=== PATIENT | female | born 1960 | race Caucasian/White ===

== ENCOUNTER 2020-02-22 16:10 | Emergency (ER) | payer MEDICAID ==
[2020-02-22] MEDS ORDERED: Sodium Chloride 0.9% 10 ML Syringe FLUSH PRN ×2 (16:27→16:43)
[2020-02-22] MEDS ORDERED: Ondansetron 4 MG/2 ML SDV IVPUSH ONE (16:27)
[2020-02-22] MEDS ORDERED: HYDROmorphone 0.5 MG/0.5 ML Syringe IVPUSH ONE (16:29)
[2020-02-22] MEDS ORDERED: Sodium Chloride 0.9% 1,000 ML IV SCH (16:30)
[2020-02-22] MEDS ORDERED: Diatrizoate Meglumine/Diatrizoate Sodium 37% 120 ML Bottle PO ONE (16:43)
[2020-02-22] MEDS ORDERED: Iopamidol 612 MG/ML 100 ML Bottle IVPUSH ONE (16:43)
--- NOTE | 2020-02-22 17:07 | EDM.PDOC ---
ED HPI GENERAL MEDICAL PROBLEM - General Chief Complaint: Abdominal Pain Stated Complaint: ABDOMINAL PAIN Time Seen by Provider: 02/22/20 16:17 Source of Information: Reports: Patient History Limitations: Reports: No Limitations - History of Present Illness INITIAL COMMENTS - FREE TEXT/NARRATIVE: The patient presents with abdominal pain, nausea and bloating. She says the bloating has been going on for months. She ate at [employer] this afternoon and after that she developed pain in her left abdomen. She is nauseated but she did not vomit. She has no fever, chills, cough, congestion, runny nose, chest pain or shortness of breath. She says she had some trouble in her liver in the past from drinking but that is better now. She has no dysuria or diarrhea. Onset: Gradual Duration: Hour(s): Location: Reports: Abdomen Quality: Reports: Sharp Severity: Moderate Improves with: Reports: None Worsens with: Reports: None Associated Symptoms: Reports: Nausea/Vomiting. Denies: Chest Pain, Cough, Fever /Chills, Headaches, Shortness of Breath Left Upper Abdominal Pain Score (Numeric/FACES): 7 - Related Data Allergies Allergy/AdvReac Type Severity Reaction Status Date / Time No Known Allergies Allergy Verified 02/22/20 16:20 Home Meds: Home Meds Hydrocodone/Acetaminophen [Hydrocodone-Acetamin 5-325 mg] 1 - 2 each PO Q6HR PRN #10 tablet 02/22/20 [Rx] Past Medical History Cardiovascular History: Reports: Hypertension Social & Family History - Tobacco Use Smoking Status *Q: Current Every Day Smoker Years of Tobacco use: 25 Packs/Tins Daily: 0.5 - Alcohol Use Days Per Week of Alcohol Use: 7 Number of Drinks Per Day: 3 Total Drinks Per Week: 21 - Recreational Drug Use Recreational Drug Use: Yes Drug Use in Last 12 Months: Yes Recreational Drug Type: Reports: Marijuana/Hashish ED ROS GENERAL - Review of Systems Review Of Systems: See Below Constitutional: Reports: No Symptoms HEENT: Reports: No Symptoms Respiratory: Reports: No Symptoms Cardiovascular: Reports: No Symptoms Endocrine: Reports: No Symptoms GI/Abdominal: Reports: Abdominal Pain, Nausea. Denies: Diarrhea, Vomiting : Reports: No Symptoms Musculoskeletal: Reports: No Symptoms ED EXAM, GI/ABD - Physical Exam Exam: See Below Exam Limited By: No Limitations General Appearance: Alert, No Apparent Distress Ears: Normal External Exam Nose: Normal Inspection Head: Atraumatic, Normocephalic Neck: Normal Inspection Respiratory/Chest: No Respiratory Distress, Lungs Clear, Normal Breath Sounds Cardiovascular: Regular Rate, Rhythm, No Edema, No Murmur GI/Abdominal Exam: Soft, No Organomegaly, No Mass, Distended, Tender (Left abdomen) Course - Vital Signs Last Recorded V/S: Last Vital Signs Temp 97.9 F 02/22/20 16:17 Pulse 75 02/22/20 16:17 Resp 18 02/22/20 16:17 BP 101/63 02/22/20 16:17 Pulse Ox 95 02/22/20 16:17 - Orders/Labs/Meds Orders: Active Orders 24 hr Category Date Time Status Peripheral IV Care [RC] . DIRECTED Care 02/22/20 16:28 Active Sodium Chloride 0.9% [Normal Saline] 1,000 ml Med 02/22/20 16:30 Active IV ASDIRECTED Sodium Chloride 0.9% [Saline Flush] Med 02/22/20 16:27 Active 10 ml FLUSH ASDIRECTED PRN ED Antiemetic Medication Reflex [OM.PC] Stat Oth 02/22/20 16:28 Ordered Peripheral IV Insertion Adult [OM.PC] Stat Oth 02/22/20 16:27 Ordered Medication Orders Sodium Chloride (Normal Saline) 1,000 mls @ 125 mls/hr IV ASDIRECTED MARIBEL Last Admin: 02/22/20 16:35 Dose: 125 mls/hr Sodium Chloride (Saline Flush) 10 ml FLUSH ASDIRECTED PRN PRN Reason: Keep Vein Open Last Admin: 02/22/20 16:34 Dose: 10 ml Labs: Laboratory Tests 02/22/20 02/22/20 02/22/20 Range/Units 16:25 16:25 16:25 WBC 11.16 H (3.98-10.04) K/mm3 RBC 3.94 L (3.98-5.22) M/mm3 Hgb 12.9 (11.2-15.7) gm/dl Hct 39.4 (34.1-44.9) % MCV 100.0 H (79.4-94.8) fl MCH 32.7 H (25.6-32.2) pg MCHC 32.7 (32.2-35.5) g/dl RDW Std Deviation 47.2 H (36.4-46.3) fL Plt Count 335 (182-369) K/mm3 MPV 10.4 (9.4-12.3) fl Neut % (Auto) 72.7 H (34.0-71.1) % Lymph % (Auto) 16.9 L (19.3-51.7) % [place] % (Auto) 8.9 (4.7-12.5) % Eos % (Auto) 0.6 L (0.7-5.8) Baso % (Auto) 0.3 (0.1-1.2) % Neut # (Auto) 8.11 H (1.56-6.13) K/mm3 Lymph # (Auto) 1.89 (1.18-3.74) K/mm3 [place] # (Auto) 0.99 H (0.24-0.36) K/mm3 Eos # (Auto) 0.07 (0.04-0.36) K/mm3 Baso # (Auto) 0.03 (0.01-0.08) K/mm3 Manual Slide Review Normal smear Sodium 139 (136-145) mEq/L Potassium 4.3 (3.5-5.1) mEq/L Chloride 103 (98-107) mEq/L Carbon Dioxide 25 (21-32) mEq/L Anion Gap 15.3 H (5-15) BUN 42 H (7-18) mg/dL Creatinine 1.9 H (0.55-1.02) mg/dL Est Cr Clr Drug Dosing 24.59 mL/min Estimated GFR (MDRD) 27 (>60) mL/min BUN/Creatinine Ratio 22.1 H (14-18) Glucose 124 H (80-115) mg/dL Calcium 9.6 (8.5-10.1) mg/dL Total Bilirubin 0.5 (0.2-1.0) mg/dL AST 18 (15-37) U/L ALT 31 (14-59) U/L Alkaline Phosphatase 74 (46-116) U/L Total Protein 7.6 (6.4-8.2) g/dl Albumin 3.9 (3.4-5.0) g/dl Globulin 3.7 gm/dL Albumin/Globulin Ratio 1.1 (1-2) Lipase 180 (73-393) U/L Ethyl Alcohol 0.00 (0.00) gm% Meds: Medications Generic Name Dose Route Start Last Admin Trade Name Brenda PRN Reason Stop Dose Admin Sodium Chloride 1,000 mls @ 125 mls/hr 02/22/20 16:30 02/22/20 16:35 Normal Saline IV 125 mls/hr ASDIRECTED MARIBEL Administration Sodium Chloride 10 ml 02/22/20 16:27 02/22/20 16:34 Saline Flush FLUSH 10 ml ASDIRECTED PRN Administration Keep Vein Open Discontinued Medications Generic Name Dose Route Start Last Admin Trade Name Brenda PRN Reason Stop Dose Admin Diatrizoate Meglum/Diatrizoate Sod 40 ml 02/22/20 16:43 02/22/20 17:42 Gastrografin 37% PO 02/22/20 16:44 40 ml ONETIME ONE Administration Hydromorphone HCl 0.5 mg 02/22/20 16:29 02/22/20 16:35 Dilaudid IVPUSH 02/22/20 16:30 0.5 mg ONETIME ONE Administration Iopamidol 100 ml 02/22/20 16:43 Isovue-300 (61%) IVPUSH 02/22/20 16:44 ONETIME ONE Ondansetron HCl 4 mg 02/22/20 16:27 02/22/20 16:34 Zofran IVPUSH 02/22/20 16:28 4 mg ONETIME ONE Administration Sodium Chloride 10 ml 02/22/20 16:43 Saline Flush FLUSH 02/22/20 18:00 ONETIME PRN Keep Vein Open - Re-Assessments/Exams Free Text/Narrative Re-Assessment/Exam: 02/22/20 17:03 I ordered an IV, zofran 4mg IV, dilaudid 0.5mg IV, labs UA and a CT of her abdomen and pelvis. She had an US done here about 6 days ago. The US shows single gallstones believed to be present within the gallbladder without gallbladder wall thickening or biliary duct dilatation. 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 No additional abnormality is identified on right upper quadrant abdominal US. 02/22/20 18:10 Her WBC is elevated at 11.16. Her BUN was elevated at 42. Her creatinine is elevated at 1.9. I do not have anything to compare to. Her glucose was 124. Her lipase was negative. Her ETOH was 0. Her CT shows findings as noted above. Nothing acute is appreciated on noncontrast CT study of the abdomen and pelvis. 02/22/20 18:19 She feels a little frustrated because it is not clear why she has a distended abdomen at this time. Departure - Departure Time of Disposition: 18:20 Disposition: Home, Self-Care 01 Condition: Good Clinical Impression: Distended abdomen Abdominal pain Qualifiers: Abdominal location: left upper quadrant Qualified Code(s): R10.12 - Left upper quadrant pain - Discharge Information *PRESCRIPTION DRUG MONITORING PROGRAM REVIEWED*: Not Applicable *COPY OF PRESCRIPTION DRUG MONITORING REPORT IN PATIENT ELIO: Not Applicable Prescriptions: Hydrocodone/Acetaminophen [Hydrocodone-Acetamin 5-325 mg] 1 - 2 each PO Q6HR PRN #10 tablet PRN Reason: Pain Referrals: PCP,Not In Area [Primary Care Provider] - Forms: ED Department Discharge Additional Instructions: Drink plenty of fluids. Take tylenol or motrin for any pain. If that does not help, try the hydrocodone. Follow up with your provider tomorrow. Please return if you are worse. Sepsis Event Note - Evaluation Sepsis Screening Result: No Definite Risk - Focused Exam Vital Signs: Vital Signs Temp Pulse Resp BP Pulse Ox 02/22/20 16:17 97.9 F 75 18 101/63 95 Date Exam was Performed: 02/22/20 Time Exam was Performed: 18:19 - My Orders Last 24 Hours: My Active Orders 02/22/20 16:27 Sodium Chloride 0.9% [Saline Flush] 10 ml FLUSH ASDIRECTED PRN Peripheral IV Insertion Adult [OM.PC] Stat 02/22/20 16:28 Peripheral IV Care [RC] . DIRECTED ED Antiemetic Medication Reflex [OM.PC] Stat 02/22/20 16:30 Sodium Chloride 0.9% [Normal Saline] 1,000 ml IV ASDIRECTED - Assessment/Plan Last 24 Hours: My Active Orders 02/22/20 16:27 Sodium Chloride 0.9% [Saline Flush] 10 ml FLUSH ASDIRECTED PRN Peripheral IV Insertion Adult [OM.PC] Stat 02/22/20 16:28 Peripheral IV Care [RC] . DIRECTED ED Antiemetic Medication Reflex [OM.PC] Stat 02/22/20 16:30 Sodium Chloride 0.9% [Normal Saline] 1,000 ml IV ASDIRECTED
--- NOTE | 2020-02-22 18:05 | CT ---
CT abdomen and pelvis Technique: Multiple axial sections were obtained from above the dome of the diaphragm inferiorly through the pubic symphysis. Intravenous contrast could not be given due to poor renal function. Oral contrast has been given. Comparison: No prior CT abdomen or pelvis exam, previous abdominal ultrasound of the right upper quadrant dated 02/15/20. Findings: Visualized lung bases show nothing acute. Liver contains no focal parenchymal abnormality. Gallbladder contains no calcified gallstones. Left kidney shows a small nonobstructing stone within the mid kidney. No additional abnormality is definitely appreciated within the kidneys. No hydronephrosis is seen. Pancreas is within normal limits. Adrenal glands show no nodule. Aorta shows atherosclerotic calcification without aneurysm. No retroperitoneal adenopathy is seen. Appendix is seen which is normal. No pelvic mass or adenopathy is seen. Mild diverticuli are seen within the sigmoid colon with no inflammatory change of diverticulitis. Bone window settings were reviewed which shows degenerative change within the spine. No acute osseous finding is appreciated. Impression: 1. Findings as noted above. 2. Nothing acute is appreciated on noncontrast CT study of the abdomen and pelvis. Diagnostic code #2 This report was dictated in MDT
== END 2020-02-22 18:32 | disposition home or self-care (01) ==
LOC: JD.ED 16:10
DX: R10.12 Left upper quadrant pain (principal); R14.0 Abdominal distension (gaseous); I10 Essential (primary) hypertension; F17.210 Nicotine dependence, cigarettes, uncomplicated
CPT/HCPCS: 36415; 74177; 80053; 80307; 83690; 85025; 96361; 96374; 96375; 99284; J1170; J2405; J7030

== ENCOUNTER 2020-03-08 10:40 | Day surgery (SDC) | payer MEDICAID ==
[2020-03-08] MEDS ORDERED: Lidocaine 1%/Sod Bicarbonate in NS 8.4% 1 ML Syringe IDERM PRN (11:07)
[2020-03-08] MEDS ORDERED: Sodium Chloride 0.9% 10 ML Syringe FLUSH PRN (11:07)
[2020-03-08] MEDS ORDERED: Lactated Ringers 1,000 ML IV SCH (11:15)
[2020-03-08] MEDS ORDERED: Propofol 200 MG/20 ML SDV ONE ×2 (11:51→12:15)
[2020-03-08] MEDS ORDERED: fentaNYL 100 MCG/2 ML SDV ONE (11:51)
[2020-03-08] MEDS ORDERED: Lidocaine 1% 4 ML ONE (11:53)
--- NOTE | 2020-03-08 12:02 | PCM.PREANE ---
Preanesthetic Assessment - Anesthesia/Transfusion/Family Hx Anesthesia History: Prior Anesthesia Without Reaction Family History of Anesthesia Reaction: No Transfusion History: No Prior Transfusion(s) - Review of Systems General: No Symptoms, Other (adenoma of adrenal adenoma) Pulmonary: Shortness of Breath, Other (smoker, last smoke 0700, positive for marijuana, last used at 0700) Cardiovascular: Chest Pain (goes away with rest) Gastrointestinal: Abdominal Pain, Other (GERD) Neurological: Numbness, Tingling (in hands, cervical rediculopathy) Other: Reports: Anxiety - Physical Assessment NPO Status Date: 03/08/20 NPO Status Time: 07:00 Vital Signs: Last Vital Signs Temp 36.6 C 03/08/20 10:40 Pulse 69 03/08/20 10:40 Resp 20 03/08/20 10:40 BP 141/71 H 03/08/20 10:40 Pulse Ox 95 03/08/20 10:40 Height: 1.57 m Weight: 82.1 kg ASA Class: 3 Mental Status: Alert & Oriented x3 Airway Class: Mallampati = 2 Dentition: Reports: Normal Dentition Thyro-Mental Finger Breadths: 3 Mouth Opening Finger Breadths: 3 ROM/Head Extension: Full Lungs: Clear to Auscultation, Normal Respiratory Effort Cardiovascular: Regular Rate, Regular Rhythm - Allergies Allergies/Adverse Reactions: Allergies Allergy/AdvReac Type Severity Reaction Status Date / Time No Known Allergies Allergy Verified 02/22/20 16:20 - Blood Blood Available: No Product(s) Available: None - Anesthesia Plan Pre-Op Medication Ordered: None Beta Darlin: Metoprolol Med Last Dose Date: 03/08/20 Med Last Dose Time: 07:00 - Acknowledgements Anesthesia Type Planned: MAC Pt an Appropriate Candidate for the Planned Anesthesia: Yes Alternatives and Risks of Anesthesia Discussed w Pt/Guardian: Yes Pt/Guardian Understands and Agrees with Anesthesia Plan: Yes PreAnesthesia Questionnaire Cardiovascular History: Reports: Hypertension - HOME MEDS Home Medications: Home Meds Hydrocodone/Acetaminophen [Hydrocodone-Acetamin 5-325 mg] 1 - 2 each PO Q6HR PRN #10 tablet 02/22/20 [Rx] - CURRENT (IN HOUSE) MEDS Current Meds: Current Medications Lactated Ringer's (Ringers, Lactated) 1,000 mls @ 125 mls/hr IV ASDIRECTED MARIBEL Stop: 03/08/20 23:00 Last Admin: 03/08/20 10:55 Dose: 125 mls/hr Lidocaine/Sodium Bicarbonate (Buffered Lidocaine 1% In Ns 8.4%) 0.25 ml IDERM ONETIME PRN PRN Reason: Prior to IV Start Last Admin: 03/08/20 10:55 Dose: 0.25 ml Sodium Chloride (Saline Flush) 10 ml FLUSH ASDIRECTED PRN PRN Reason: Keep Vein Open Stop: 03/08/20 18:00 Discontinued Medications Fentanyl (Sublimaze) Confirm Administered Dose 100 mcg .ROUTE .STK-MED ONE Stop: 03/08/20 11:52 Lidocaine HCl (Xylocaine-Mpf 1%) Confirm Administered Dose 4 mls @ as directed .ROUTE .STK-MED ONE Stop: 03/08/20 11:54 Propofol (Diprivan 20 Ml) Confirm Administered Dose 400 mg .ROUTE .STK-MED ONE Stop: 03/08/20 11:52
[2020-03-08] MEDS ORDERED: Albuterol 0.083% 2.5 MG/3 ML Neb Soln NEB ONE (12:11)
[2020-03-08] MEDS ORDERED: Midazolam 1 MG/ML 2 ML SDV ONE (12:14)
--- NOTE | 2020-03-08 13:08 | PCM48HPAN ---
Post Anesthesia Note - EVALUATION WITHIN 48HRS OF ANESTHETIC Vital Signs in Normal Range: Yes Patient Participated in Evaluation: Yes Respiratory Function Stable: Yes Airway Patent: Yes Cardiovascular Function Stable: Yes Hydration Status Stable: Yes Pain Control Satisfactory: Yes Nausea and Vomiting Control Satisfactory: Yes Mental Status Recovered: Yes Vital Signs: Last Vital Signs Temp 36.6 C 03/08/20 10:40 Pulse 69 03/08/20 10:40 Resp 20 03/08/20 10:40 BP 141/71 H 03/08/20 10:40 Pulse Ox 99 03/08/20 12:21
--- NOTE | 2020-03-08 13:13 | PCM.OPNOTE ---
- General Post-Op/Procedure Note Date of Surgery/Procedure: 03/08/20 Operative Procedure(s): EGD Findings: 1. Duodenitis 2. Gastritis 3. Esophagitis at GE junction 4. Sliding hiatal hernia 5. Antrum polyps Pre Op Diagnosis: Abdominal pain, bloating, nausea Post-Op Diagnosis: same Anesthesia Technique: MELITON Primary Surgeon: Zuleima Curtis Anesthesia Provider: Neelima Jo Pathology: 1. Antrum biopsy 2. Biopsy of antral polyp 3. GE junction biopsy Fluid Replacement, Intraop: 800 Output, Urine Amount: 0 EBL in mLs: 0 Complications: none apparent Condition: Good
--- NOTE | 2020-03-08 13:24 | PCM.PRNOTE ---
- Free Text/Narrative Note: Operative Report Date of procedure: March 08, 2020 Preoperative diagnosis: Abdominal pain, bloating, nausea Postoperative diagnosis: same Surgeon: Zuleima Curtis M.D. Procedure: EGD Anesthesia: MAC Brazing Machine Operator: Neelima Jo CRNA IV fluids: 800 mL Estimated blood loss: 0 mL Findings: 1. Duodenitis 2. Gastritis 3. Esophagitis at GE junction 4. Sliding hiatal hernia 5. Antrum polyps Specimens: 1. Antrum biopsy 2. Biopsy of antral polyp 3. GE junction biopsy Indication: The patient is a 59-year-old lady who presented with findings of abdominal pain, bloating, nausea and some dyspepsia. The patient was consented for an EGD for diagnostic purposes. Risk of bleeding and perforation were discussed. The patient's consent was obtained Description of the procedure: The patient was taken to the endoscopy suite and placed on hemodynamic monitoring. The nurse zipper trimmer hand induced MAC anesthesia. A bite block was placed. The patient was positioned in the left lateral decubitus position. A timeout was performed. The endoscope was gently placed into the mouth to the back of the pharynx and introduced into the esophagus. The scope was gently advanced under direct visualization down to the level of the lower esophageal sphincter. The stomach was then entered. Normal rugal folds were noted. The scope was advanced into the antrum. We noted evidence of hemorrhagic gastritis with stigmata of recent bleeding, there was no active bleeding noted. The pylorus was then entered and the first and second portion of the duodenum was inspected. We did note some erythema and friability consistent with duodenitis. There were no ulcerations in the duodenum. The scope was withdrawn to the antrum and biopsies were taken with a cold biopsy forceps for H. pylori. There were polypoid areas with superficial erosion noted in the antrum, biopsies were taken with cold biopsy forceps. The scope was then retroflexed in the cardia and fundus were investigated. There is evidence of a small hiatal hernia. The tissue in the area of the GE junction appeared somewhat inflamed, biopsies were taken with a cold biopsy forceps for pathology. No other abnormalities were noted. The scope was then withdrawn while inspecting the esophagus. There was no esophagitis. The procedure was terminated. the patient tolerated the procedure well without any evidence of complications. Zuleima Curtis MD General Surgery
== END 2020-03-08 14:05 | disposition home or self-care (01) ==
LOC: JD.SDS 10:40
PROVIDERS: ATTEND Surgery
DX: K29.51 Unspecified chronic gastritis with bleeding (principal); K29.80 Duodenitis without bleeding; K44.9 Diaphragmatic hernia without obstruction or gangrene; K20.9 Esophagitis, unspecified; K31.7 Polyp of stomach and duodenum; K31.89 Other diseases of stomach and duodenum; I10 Essential (primary) hypertension; F41.9 Anxiety disorder, unspecified; F17.210 Nicotine dependence, cigarettes, uncomplicated; Z98.890 Other specified postprocedural states; Z79.899 Other long term (current) drug therapy
CPT/HCPCS: 00731; 94640; J2001; J2250; J2704; J3010; J7120

== ENCOUNTER 2020-07-05 07:58 | Day surgery (SDC) | payer MEDICAID ==
[~2020-07-05 07:58] MED LIST: Albuterol 0.083% 2.5 MG/3 ML Neb Soln NEB ONE; Dexamethasone 4 MG/ML 5 ML MDV ONE; Dexmedetomidine 200 MCG/2 ML SDV ONE; FLU VACC QS2020-21(6MOS UP)/PF 60 MCG/0.5 ML SYRINGE IM ONE; Lactated Ringers 1,000 ML IV SCH; Lidocaine 1% 4 ML ONE; Lidocaine 1%/Sod Bicarbonate in NS 8.4% 1 ML Syringe IDERM PRN; Midazolam 1 MG/ML 2 ML SDV ONE; Ondansetron 4 MG/2 ML SDV ONE; Propofol 200 MG/20 ML SDV ONE; Rocuronium 50 MG/5 ML Vial ONE; Sodium Chloride 0.9% 10 ML Syringe FLUSH PRN; fentaNYL 250 MCG/5 ML SDV ONE
[2020-07-05] MEDS ORDERED: Lidocaine 1% with EPINEPHrine 1:100,000 20 ML MDV ONE (08:03)
[2020-07-05] MEDS ORDERED: Bupivacaine 0.5%/EPINEPHrine 1:200,000 50 ML MDV ONE (08:03)
[2020-07-05] MEDS ORDERED: Albuterol 0.083% 2.5 MG/3 ML Neb Soln ONE (08:29)
--- NOTE | 2020-07-05 08:29 | PCM.PREANE ---
Preanesthetic Assessment - Procedure Proposed Procedure: lap roopa - Anesthesia/Transfusion/Family Hx Anesthesia History: Prior Anesthesia Without Reaction Family History of Anesthesia Reaction: No Transfusion History: No Prior Transfusion(s) - Review of Systems General: No Symptoms Pulmonary: Cough (smokers) Cardiovascular: Dyspnea on Exertion Gastrointestinal: Abdominal Pain (Right upper quadrant) Neurological: Numbness (hands) Other: Reports: Anxiety - Physical Assessment NPO Status Date: 07/04/20 NPO Status Time: 00:00 Height: 1.57 m Weight: 82.4 kg ASA Class: 2 Mental Status: Alert & Oriented x3 Airway Class: Mallampati = 1 Dentition: Reports: Missing Tooth/Teeth (front top), Caries Thyro-Mental Finger Breadths: 3 Mouth Opening Finger Breadths: 3 ROM/Head Extension: Full Lungs: Clear to Auscultation, Normal Respiratory Effort Cardiovascular: Regular Rate, Regular Rhythm - Imaging/EKG Impressions: EKG SR rate 62 - Allergies Allergies/Adverse Reactions: Allergies Allergy/AdvReac Type Severity Reaction Status Date / Time No Known Allergies Allergy Verified 07/05/20 09:08 - Blood Blood Available: No Product(s) Available: None - Anesthesia Plan Pre-Op Medication Ordered: Beta Darlin Beta Darlin: Metoprolol Med Last Dose Date: 07/05/20 Med Last Dose Time: 05:00 - Acknowledgements Anesthesia Type Planned: General Anesthesia Pt an Appropriate Candidate for the Planned Anesthesia: Yes Alternatives and Risks of Anesthesia Discussed w Pt/Guardian: Yes Pt/Guardian Understands and Agrees with Anesthesia Plan: Yes PreAnesthesia Questionnaire HEENT History: Reports: None Cardiovascular History: Reports: Hypertension Respiratory History: Reports: None Gastrointestinal History: Reports: Diverticulosis, Other (See Below) Other Gastrointestinal History: dyspepsia, fatty liver, left inguinal hernia Genitourinary History: Reports: None FIELD SPECIALIST History: Reports: None Musculoskeletal History: Reports: Osteoarthritis Neurological History: Reports: Other (See Below) Other Neuro History: cerebral anuerysm, cervical radiculopathy, disc degeneration Psychiatric History: Reports: Addiction, Anxiety Endocrine/Metabolic History: Reports: Other (See Below) Other Endocrine/Metabolic History: adrenal gland adenoma Hematologic History: Reports: Other (See Below) Other Hematologic History: macrocytic anemia Immunologic History: Reports: None Oncologic (Cancer) History: Reports: None Dermatologic History: Reports: Other (See Below) Other Dermatologic History: onchomycosis - Past Surgical History Head Surgeries/Procedures: Reports: None HEENT Surgical History: Reports: None Cardiovascular Surgical History: Reports: None Respiratory Surgical History: Reports: None GI Surgical History: Reports: Colonoscopy, EGD Female Surgical History: Reports: Hysterectomy Male Surgical History: Reports: None Endocrine Surgical History: Reports: None Neurological Surgical History: Reports: Other (See Below) Other Neurological Surgeries/Procedures: craniotomy Musculoskeletal Surgical History: Reports: None Oncologic Surgical History: Reports: None Dermatological Surgical History: Reports: None - SUBSTANCE USE Smoking Status *Q: Current Every Day Smoker Days Per Week of Alcohol Use: 7 Number of Drinks Per Day: 8 Total Drinks Per Week: 56 Date of Last Drink: 07/03/20 Recreational Drug Use History: Yes Recreational Drug Type: Reports: Marijuana/Hashish - HOME MEDS Home Medications: Home Meds Pantoprazole Sodium [Protonix] 40 mg PO DAILY #30 tablet. 03/08/20 [Rx] Acai Alas Extract [Acai Alas] 500 mg PO BID 07/04/20 [History] Alpha Lipoic Acid [Lipoic Acid] 1 dose PO DAILY 07/04/20 [History] Calcium Carb/Mag Ox/Zinc Gluc [Iedcplq-Qvpuanoyz-Xexx] 1 tab PO DAILY 07/04/20 [History] Fish Oil/Borage/Flax/Om3,6,9 1 [[place] 3-6-9 1,200 mg Softgel] 1 tab PO DAILY 07/04/20 [History] Losartan [Cozaar] 100 mg PO DAILY 07/04/20 [History] Metoprolol Succinate 50 mg PO BID 07/04/20 [History] Potassium Gluconate [Potassium] 99 mg PO BID 07/04/20 [History] Psyllium Husk [Metamucil] 1 dose PO DAILY PRN 07/04/20 [History] Vitamin B Complex [B Complex] 2 tab PO DAILY 07/04/20 [History] Vitamin E Acid Succinate [Vitamin E] 100 units PO DAILY 07/04/20 [History] - CURRENT (IN HOUSE) MEDS Current Meds: Current Medications Lactated Ringer's (Ringers, Lactated) 1,000 mls @ 125 mls/hr IV ASDIRECTED MARIBEL Stop: 07/05/20 23:00 Lidocaine/Sodium Bicarbonate (Buffered Lidocaine 1% In Ns 8.4%) 0.25 ml IDERM ONETIME PRN PRN Reason: Prior to IV Start Stop: 07/05/20 23:00 Sodium Chloride (Saline Flush) 10 ml FLUSH ASDIRECTED PRN PRN Reason: Keep Vein Open Stop: 07/05/20 23:00 Discontinued Medications Albuterol (Proventil Neb Soln) 2.5 mg NEB ONETIME ONE Stop: 07/05/20 00:02 Bupivacaine HCl/Epinephrine Bitart (Marcaine 0.5%/Epinephrine 1:200,000) Confirm Administered Dose 50 ml .ROUTE .STK-MED ONE Stop: 07/05/20 08:04 Dexamethasone (Dexamethasone) Confirm Administered Dose 20 mg .ROUTE .STK-MED ONE Stop: 07/05/20 07:27 Dexmedetomidine HCl (Precedex) Confirm Administered Dose 200 mcg .ROUTE .STK-MED ONE Stop: 07/05/20 07:30 Fentanyl (Sublimaze) Confirm Administered Dose 250 mcg .ROUTE .STK-MED ONE Stop: 07/05/20 07:25 Lidocaine HCl (Xylocaine-Mpf 1%) Confirm Administered Dose 4 mls @ as directed .ROUTE .STK-MED ONE Stop: 07/05/20 07:24 Influenza Virus Vaccine (Fluzone Quad 2817-2300 Syringe) 60 mcg IM .ONCE ONE Stop: 07/04/20 13:01 Lidocaine/Epinephrine (Xylocaine 1% With Epinephrine 1:100,000) Confirm Administered Dose 40 ml .ROUTE .STK-MED ONE Stop: 07/05/20 08:04 Midazolam HCl (Versed 1 Mg/Ml) Confirm Administered Dose 2 mg .ROUTE .STK-MED ONE Stop: 07/05/20 07:23 Ondansetron HCl (Zofran) Confirm Administered Dose 4 mg .ROUTE .STK-MED ONE Stop: 07/05/20 07:27 Propofol (Diprivan 20 Ml) Confirm Administered Dose 200 mg .ROUTE .STK-MED ONE Stop: 07/05/20 07:25 Rocuronium Girard (Zemuron) Confirm Administered Dose 50 mg .ROUTE .STK-MED ONE Stop: 07/05/20 07:26
[2020-07-05] MEDS ORDERED: ceFAZolin 1 GM Vial ONE (09:26)
[2020-07-05] MEDS ORDERED: Sodium Chloride 0.9% 100 ML ONE (09:30)
[2020-07-05] MEDS ORDERED: ePHEDrine Sulfate/0.9% NaCl/Pf 25 MG/5 ML SYRINGE IV ONE (09:36)
[2020-07-05] MEDS ORDERED: fentaNYL 100 MCG/2 ML SDV ONE ×2 (09:50→10:55)
[2020-07-05] MEDS ORDERED: HYDROmorphone 0.5 MG/0.5 ML Syringe ONE ×2 (09:51→10:13)
[2020-07-05] MEDS ORDERED: Lactated Ringers 1,000 ML ONE (09:55)
[2020-07-05] MEDS ORDERED: fentaNYL 100 MCG/2 ML SDV IVPUSH PRN (10:06)
[2020-07-05] MEDS ORDERED: HYDROmorphone 0.5 MG/0.5 ML Syringe IVPUSH PRN (10:06)
[2020-07-05] MEDS ORDERED: Rocuronium 50 MG/5 ML Vial ONE (10:21)
--- NOTE | 2020-07-05 10:38 | PCM.OPNOTE ---
- General Post-Op/Procedure Note Date of Surgery/Procedure: 07/05/20 Operative Procedure(s): laparoscopic cholecystectomy Findings: normal gallbladder anatomy Pre Op Diagnosis: symptomatic cholelithiasis Post-Op Diagnosis: same Anesthesia Technique: General ET Tube Primary Surgeon: Zuleima Curtis Anesthesia Provider: Gianni Mart Payroll Tax Analyst: Bg Taylor (Student HOSPITAL PERSONNEL DIRECTOR) Pathology: gallbladder with contents Fluid Replacement, Intraop: 1,200 Output, Urine Amount: 0 EBL in mLs: 50 Complications: none apparent Condition: Good
--- NOTE | 2020-07-05 10:57 | PCM.PRNOTE ---
- Free Text/Narrative Note: OPERATIVE REPORT Date of Surgery/Procedure: July 05, 2020 Operative Procedure(s): laparoscopic cholecystectomy Findings: Normal gallbladder anatomy Pre Op Diagnosis: Symptomatic cholelithiasis Post-Op Diagnosis: Same Anesthesia Technique: General ET Tube Primary Surgeon: Zuleima Curtis MD Anesthesia Provider: Gianni Mart CRNA and JASWANT Amado Pathology: Gallbladder with contents Fluid Replacement, Intraop: 1200 cc Output, Urine Amount: 0cc EBL: 50 cc Drain/Tube Comments: None Indication for the procedure: The patient is a 59-year-old lady who presented to my office with upper abdominal pain with some isolated right upper quadrant pain. She had ultrasound findings of cholelithiasis without cholecystitis or biliary obstruction. Her preoperative CMP was within normal limits. The patient was counseled for laparoscopic cholecystectomy, with possible conversion to open. After discussion of the risks of infection, bleeding and injury to the bile duct as well as increased complication from previous intra-abdominal surgery, the patient's consent was obtained. Description of the procedure: The patient presented to the outpatient holding area on the day of the procedure. The history and physical were verified and consent was present and on the chart. The patient was taken back to the operating room and placed in supine position on the operating table. SCD boots were placed and functional prior to the start of the procedure. Preoperative antibiotics were administered according to SCIP protocol, Ancef 2 g IV. A surgical timeout was performed. The patient then had induction of general anesthesia and was intubated without difficulty. The patient was prepped and draped in standard surgical fashion. We began by making an infraumbilical vertical incision and deepened this down through subcutaneous fat to the level of the fascia. This was grasped and incised. We bluntly entered through the peritoneum and a finger sweep was done. A stay suture of 0 Vicryl was placed in the fascia. The 12 mm balloon Dhillon port was then inserted into the abdomen and the balloon inflated. Insufflation was attached and we had appropriate opening pressures. The abdomen was then insufflated to 15 mmHg. We inserted a scope into the abdomen and inspected the area where we had entered. There was no evidence of injury to surrounding structures with no evidence of bile or bleeding. A TAP block was then performed using 1% lidocaine with epinephrine mixed with 0.5% bupivacaine with epinephrine. We then proceeded with placing our additional ports. A 5mm port was placed in the epigastric region. Two additional 5mm ports placed under direct visualization in the right upper quadrant. The patient was then positioned with head up and right side up to facilitate exposure of the gallbladder. Once we had sufficiently exposed the dome of the gallbladder, this was grasped and retracted cephalad. During this process, a small tear was made in the adjacent liver lobe where there was a cleft. The bleeding was addressed with the Bovie device and Surgicel. This did control the bleeding. We proceeded with our dissection to expose the cystic duct and cystic artery. The cystic duct and artery were then clipped and cut using endoscopic scissors. We then proceeded to fully dissect the gallbladder off of the cystic plate using the Bovie device. The gallbladder was then placed in the Endo Catch bag and withdrawn towards the umbilical port. A small hole was made in the gallbladder during the process of dissection. There was spillage of some bile. We then inspected the area of the dissection. Ray-Reynaldo's were used to mop up blood and spilled bile. The cystic plate was then addressed with the Bovie device for hemostasis. There was no significant bleeding and hemostasis was achieved. We then inspected the port sites and desufflated the abdomen. The ports were then removed. The gallbladder was withdrawn through the umbilical port site. We then proceeded to close the umbilical port site using an 0 Vicryl stitch. We had good closure of the fascia. A superficial 4-0 monocryl suture was used to approximate the skin. The skin was covered with Dermabond surgical glue. The patient tolerated the procedure well and was extubated without difficulty. He was transported to the PACU in stable condition. All sponge, needle counts correct. I was scrubbed and actively participated in the entire procedure. No immediate complications noted. Complications: None apparent Condition: Good Zuleima Curtis MD General Surgery
--- NOTE | 2020-07-05 11:07 | PCM.POSTAN ---
POST ANESTHESIA ASSESSMENT - MENTAL STATUS Mental Status: Alert, Oriented - VITAL SIGNS Vital Signs: Last Vital Signs Temp 97.7 F 07/05/20 08:05 Pulse 66 07/05/20 08:05 Resp 16 07/05/20 08:05 BP 128/84 07/05/20 09:06 Pulse Ox 97 07/05/20 08:33 132/88 93% 3L 73 10 96.9f - RESPIRATORY Respiratory Status: Respiratory Rate WNL, Airway Patent, O2 Saturation Stable, Supplemental Oxygen - CARDIOVASCULAR CV Status: Pulse Rate WNL, Blood Pressure Stable - GASTROINTESTINAL GI Status: No Symptoms - PAIN Pain Score: 3 - POST OP HYDRATION Hydration Status: Adequate & Stable
[2020-07-05] MEDS ORDERED: Acetaminophen/HYDROcodone 325-5 MG Tab PO PRN (11:46)
--- NOTE | 2020-07-05 11:48 | PCM48HPAN ---
Post Anesthesia Note - EVALUATION WITHIN 48HRS OF ANESTHETIC Vital Signs in Normal Range: Yes Patient Participated in Evaluation: Yes Respiratory Function Stable: Yes Airway Patent: Yes Cardiovascular Function Stable: Yes Hydration Status Stable: Yes Pain Control Satisfactory: Yes Nausea and Vomiting Control Satisfactory: Yes Mental Status Recovered: Yes Vital Signs: Last Vital Signs Temp 36.1 C 07/05/20 10:58 Pulse 66 07/05/20 08:05 Resp 11 L 07/05/20 11:40 BP 99/78 07/05/20 11:40 Pulse Ox 93 L 07/05/20 11:40 - COMMENTS/OBSERVATIONS Free Text/Narrative:: no anesthesia complications noted
== END 2020-07-05 13:00 | disposition home or self-care (01) ==
LOC: JD.SDS 07:58
PROVIDERS: ATTEND Surgery
DX: K80.10 Calculus of gallbladder with chronic cholecystitis without obstruction (principal); I10 Essential (primary) hypertension; F41.9 Anxiety disorder, unspecified; F17.210 Nicotine dependence, cigarettes, uncomplicated; K21.9 Gastro-esophageal reflux disease without esophagitis; Z79.899 Other long term (current) drug therapy; Z98.890 Other specified postprocedural states; Z01.812 Encounter for preprocedural laboratory examination; Z20.828 Contact with and (suspected) exposure to other viral communicable diseases
CPT/HCPCS: 47562; 87635; 93005; 94640; A9270; J0171; J0690; J1100; J1170; J2001; J2250; J2405; J2704; J2710; J3010; J3490; J7050; J7120; 00790; U0002